=== PATIENT | female | born 1980 ===

== ENCOUNTER 2017-08-04 12:25 | Emergency (ER) | payer MEDICAID, OTHER ==
[2017-08-04 12:47] VITALS: RESP 18; TEMP 97.5; O2SAT 99
--- NOTE | 2017-08-04 14:41 | ED PDOC ---
HPI: Headache History Per: Patient History/Exam Limitations: no limitations Onset/Duration Of Symptoms: Hrs Current Symptoms Are (Timing): Still Present Pain Scale Rating Of: 10 Quality: Pressure, Squeezing Preceeding Symptoms: Visual Disturbances Associated Symptoms: Photophobia, Blurred Vision, Nausea, Vomiting Additional Complaint(s): 36 YO Female with PMH of chronic migraine headaches and vertigo, presents to [facility] ED for severe migraine headache. Per patient headache started around 7 AM this morning, and the headache woke pt up from her sleep. Pain was followed by nausea, 3x episodes of vomiting and blurry vision. The pain persisted, and pt took imitrex, which did not help the pain subside. Pt came to the ED when the pain did not resolve. Pt states that she had has migrane headaches that were this severe and she usually takes subcu imitrex for these episodes. Pt does not have any available at home which was why she came to the ED. Denies c/d, dyspnea , fever. Of note, per chart review pt was seen in 09/2015 with similar episode of migraine headache. Pain resolved after she was treated in the ED. <Yecenia Miguel - Last Filed: 08/04/17 15:48> <Veronica Mcelroy - Last Filed: 08/04/17 16:10> Time Seen by Provider: 08/04/17 12:45 Chief Complaint (Nursing): Headache Supervising Attending Note - Supervising Attending Note The Documented history was done by the: Physician Portable Irrigation Operator The documented physical exam was done by the: Physician Portable Irrigation Operator The documented procedures were done by the: Physician Portable Irrigation Operator - Attestation: I have personally seen and examined this patient.: Yes I have fully participated in the care of the patient.: Yes I have reviewed all pertinent clinical information: Yes <Veronica Mcelroy - Last Filed: 08/04/17 16:10> Past Medical History Reviewed: Historical Data, Nursing Documentation, Vital Signs Vital Signs: Last Vital Signs Temp 97.5 F L 08/04/17 12:45 Pulse 116 H 08/04/17 12:45 Resp 18 08/04/17 12:45 BP 116/77 08/04/17 12:45 Pulse Ox 99 08/04/17 12:45 - Medical History PMH: Migraine Denies: Chronic Kidney Disease - Surgical History Surgical History: No Surg Hx - Family History Family History: States: Unknown Family Hx - Living Arrangements Living Arrangements: With Family - Social History Current smoker - smoking cessation education provided: No Alcohol: Social Drugs: Denies <Yecenia Miguel - Last Filed: 08/04/17 15:48> Vital Signs: Last Vital Signs Temp 97.5 F L 08/04/17 12:45 Pulse 92 H 08/04/17 16:07 Resp 18 08/04/17 16:07 BP 118/70 08/04/17 16:07 Pulse Ox 99 08/04/17 16:07 <Veronica Mcelroy - Last Filed: 08/04/17 16:10> - Home Medications Home Medications: Ambulatory Orders Medication Instructions Recorded SUMAtriptan [Imitrex] mg PO DAILY 07/19/15 Acetaminophen/Butalbital/Caf 1 tab PO Q6 PRN #30 tab 09/09/15 [Fioricet] Naproxen 500 mg PO BID #30 tab 09/09/15 - Allergies Allergies/Adverse Reactions: Allergies Allergy/AdvReac Type Severity Reaction Status Date / Time No Known Allergies Allergy Verified 10/03/15 04:05 Review of Systems ROS Statement: Except As Marked, All Systems Reviewed And Found Negative Constitutional: Negative for: Fever, Chills Eyes: Positive for: Vision Change (Blurry vision ). Negative for: Pain Gastrointestinal: Positive for: Nausea, Vomiting (x 3 episodes ) Musculoskeletal: Negative for: Neck Pain Neurological: Positive for: Headache. Negative for: Numbness, Confusion, Altered Mental Status <Yecenia Miguel - Last Filed: 08/04/17 15:48> Physical Exam - Reviewed Nursing Documentation Reviewed: Yes Vital Signs Reviewed: Yes - Physical Exam Appears: Positive for: Non-toxic, In Acute Distress Head Exam: Positive for: ATRAUMATIC, NORMAL INSPECTION, NORMOCEPHALIC Skin: Positive for: Normal Color, Warm, DRY Eye Exam: Positive for: EOMI, Normal appearance, PERRL ENT: Positive for: Normal ENT Inspection Neck: Positive for: Normal (Kernig's sign and Brudzinski's sign negative ), Painless ROM Cardiovascular/Chest: Positive for: Regular Rate, Rhythm Respiratory: Positive for: CNT, Normal Breath Sounds Gastrointestinal/Abdominal: Positive for: Normal Exam, Bowel Sounds, Soft Back: Positive for: Normal Inspection. Negative for: L CVA Tenderness, R CVA Tenderness Extremity: Positive for: Normal ROM Neurologic/Psych: Positive for: Alert, concrete mixing plant laborer II-XII, Oriented. Negative for: Motor/Sensory Deficits <Yecenia Miguel - Last Filed: 08/04/17 15:48> - ECG O2 Sat by Pulse Oximetry: 99 - Progress ED Course And Treament: Management is discussed with patient and she agrees with the plan. test neg, UA is wnl. zofran, pepsid, SC imitrex, ketoralac, and IV fluids administered. Pt seen and re-evaluated. She was seen using her cell phone, no longer in any distress. Pt states that she feels a lot better, her migraine headache along with nausea/ vomiting has resolved at this time. Pt tolerating PO diet, and feels well enough to go home. Will follow up with PCP and neurologist. <Yecenia Miguel - Last Filed: 08/04/17 15:48> Disposition - Disposition Disposition: Routine/Home Disposition Time: 15:54 <MyriamYecenia - Last Filed: 08/04/17 15:48> - Disposition Disposition: Routine/Home - POA Present On Arrival: None <LilibethVeronicakuldip Barker - Last Filed: 08/04/17 16:10> - Clinical Impression Clinical Impression: Migraine - Disposition Referrals: Lisa Bran MD [Medical Doctor] - Condition: STABLE Additional Instructions: Please come back to the ED if pain persists or worsens Follow up with PCP and neurologist Instructions: Migraine Headache (ED) Forms: [employer] ([place]ian)
[2017-08-04 16:09] VITALS: BP 118/70; PULSE 92
== END 2017-08-04 16:06 | disposition home or self-care (01) ==
LOC: H.ER 12:25
DX: G43.909 Migraine, unspecified, not intractable, without status migrainosus (principal)
CPT/HCPCS: 81025; 96372; 96374; 96375; 99285; J1885; J2405; J3030; J7040